=== PATIENT | male | born 1970 | race Caucasian/White ===

== ENCOUNTER 2017-07-25 04:55 | Emergency (ER) | payer SELFPAY ==
[2017-07-25 06:55] VITALS: BP 102/65
[2017-07-25 07:54] LABS: BUN/Creatinine Ratio 20; Blood Urea Nitrogen 12 mg/dL (9-20); Calcium 8.7 mg/dL (8.4-10.2); Hemolysis Index 10
[2017-07-25 07:58] LABS: Basophils # (Auto) 0.1 K/mm3 (0.0-0.1); Basophils % (Auto) 0.6 % (0.0-1.8); Eosinophils # (Auto) 0.2 K/mm3 (0.0-0.4); Eosinophils % (Auto) 1.3 % (0.0-4.3); Hematocrit 35.2 % (35.5-45.6); Hemoglobin 11.6 gm/dl (11.8-15.2); Lymphocytes # (Auto) 3.4 K/mm3 (1.2-5.4); Lymphocytes % (Auto) 23.4 % (13.4-35.0); Mean Corpuscular HGB Conc 33 % (32-34); Mean Corpuscular Volume 72 fl (84-94); Monocytes # (Auto) 0.6 K/mm3 (0.0-0.8); Platelet Count 379 K/mm3 (140-440); Red Blood Count 4.89 M/mm3 (3.65-5.03); Red Cell Distribution Width 18.7 % (13.2-15.2)
[2017-07-25 08:00] LABS: Mean Corpuscular Hemoglobin 24 pg (28-32)
== END 2017-07-25 11:16 | disposition left against medical advice (07) ==
LOC: ED 04:55
DX: R55 Syncope and collapse (principal); Z53.21 Procedure and treatment not carried out due to patient leaving prior to being seen by health care provider
CPT/HCPCS: 36415; 80048; 85025; 93005; 93010; G0480; 80320

== ENCOUNTER 2020-08-03 00:08 | Inpatient (IN) | payer OTHER ==
--- NOTE | 2020-08-03 00:16 | Emergency Department Report ---
- General Chief complaint: Weakness Stated complaint: POSS STROKE PUI?: No Time Seen by Provider: 08/03/20 00:08 Source: patient, EMS Mode of arrival: Stretcher Limitations: No Limitations - History of Present Illness Initial comments: Patient is a 50-year-old male that presents emergency room with complaints of right-sided weakness. Patient states it started approximately 4550 minutes ago. Patient states he is unable to move the right upper and lower extremity. Patient is also got a right-sided facial droop. Patient states she had a past medical history of hypertension and hyperlipidemia. Patient states her no modifying factors. Patient denies chest pain shortness of breath. Patient denies recent travel. Patient denies recent international travel. Patient denies exposure to the novel coronavirus. Patient denies sick contacts. Patient denies fever and chills. Patient denies cough. Patient denies diarrhea. Patient denies coming in contact with anybody with symptoms of the novel coronavirus. . Complaint: focal weakness -: Sudden, minutes(s) Location: RUE, R hand, RLE Severity: severe Consistency: constant - Related Data Previous Rx's Medication Instructions Recorded Last Taken Type Omeprazole [PriLOSEC] 20 mg PO BID #60 cap 08/01/14 Unknown Rx amLODIPine 5 mg PO QDAY #30 tablet 08/01/14 Unknown Rx Aspirin 325 mg PO QDAY #30 tablet 08/04/20 Unknown Rx AtorvaSTATin [Lipitor] 40 mg PO QHS #30 tablet 08/04/20 Unknown Rx Allergies Allergy/AdvReac Type Severity Reaction Status Date / Time Penicillins Allergy Anaphylaxis Verified 08/03/20 02:48 ED Review of Systems ROS: Stated complaint: POSS STROKE Other details as noted in HPI Constitutional: weakness. denies: chills, fever Eyes: denies: eye pain, eye discharge, vision change ENT: denies: ear pain, throat pain Respiratory: denies: cough, shortness of breath, wheezing Cardiovascular: denies: chest pain, palpitations Endocrine: no symptoms reported Gastrointestinal: denies: abdominal pain, nausea, diarrhea Genitourinary: denies: urgency, dysuria Musculoskeletal: denies: back pain, joint swelling, arthralgia Skin: denies: rash, lesions Neurological: as per HPI, weakness. denies: headache, paresthesias Psychiatric: denies: anxiety, depression Hematological/Lymphatic: denies: easy bleeding, easy bruising ED Past Medical Hx - Past Medical History Previous Medical History?: Yes Hx Hypertension: Yes Hx Heart Attack/AMI: No Hx Congestive Heart Failure: No Hx Diabetes: No Hx GERD: Yes Hx Liver Disease: No Hx Renal Disease: No Hx Sickle Cell Disease: No Hx Seizures: No Hx Asthma: No Hx COPD: No Hx HIV: No Additional medical history: pancreatitis - Surgical History Past Surgical History?: Yes Hx Pacemaker: No Hx Internal Defibrillator: No Additional Surgical History: perf gastric ulcer april 2013 - Family History Family history: no significant - Social History Smoking Status: Current Every Day Smoker Substance Use Type: Alcohol - Medications Home Medications: Home Medications Medication Instructions Recorded Confirmed Last Taken Type Omeprazole [PriLOSEC] 20 mg PO BID #60 cap 08/01/14 08/03/20 Unknown Rx amLODIPine 5 mg PO QDAY #30 tablet 08/01/14 08/03/20 Unknown Rx Aspirin 325 mg PO QDAY #30 tablet 08/04/20 Unknown Rx AtorvaSTATin [Lipitor] 40 mg PO QHS #30 tablet 08/04/20 Unknown Rx ED Physical Exam - General General appearance: alert, in no apparent distress - Head Head exam: Present: atraumatic, normocephalic - Eye Eye exam: Present: normal appearance, PERRL Pupils: Present: normal accommodation - ENT ENT exam: Present: mucous membranes moist - Neck Neck exam: Present: normal inspection - Respiratory Respiratory exam: Present: normal lung sounds bilaterally. Absent: respiratory distress, wheezes, rhonchi - Cardiovascular Cardiovascular Exam: Present: regular rate, normal rhythm. Absent: systolic murmur, diastolic murmur, rubs, gallop - GI/Abdominal GI/Abdominal exam: Present: soft, normal bowel sounds - Rectal Rectal exam: Present: deferred - Extremities Exam Extremities exam: Present: normal inspection - Back Exam Back exam: Present: normal inspection - Neurological Exam Neurological exam: Present: alert, oriented X3 - Psychiatric Psychiatric exam: Present: normal affect, normal mood - Skin Skin exam: Present: warm, dry, intact, normal color. Absent: rash - Assessment Assessment Interval: Baseline - Level of Consciousness 1a. Level of Consciousness: alert/keenly responsive - LOC Questions 1b. LOC Questions: answers both correctly - LOC Command 1c. LOC Commands: performs tasks correctly - Best Gaze 2. Best Gaze: normal - Visual 3. Visual: no visual loss - Facial Palsy 4. Facial Palsy: partial paralysis - Motor Arm 5a. Motor Arm Left: no drift 5b. Motor Arm Right: no movement - Motor Leg 6a. Motor Leg Left: no drift 6b. Motor Leg Right: no movement - Limb Ataxia 7. Limb Ataxia: absent - Sensory 8. Sensory: normal - Best Language 9. Best Language: no aphasia - Dysarthria 10. Dysarthria: normal - Extinction and Inattention 11. Extinction/Inattention: no abnormality - Scoring Total Score: 10 Stroke Severity: Moderate Stroke ED Course Vital Signs 08/03/20 08/03/20 08/03/20 00:10 02:21 02:22 Temperature 98.1 F Pulse Rate 87 75 74 Pulse Rate [ None] Pulse Rate [ Right Arm] Respiratory 22 Rate Respiratory Rate [Right Arm ] Blood Pressure 136/91 114/75 114/75 Blood Pressure 136/91 [Left] Blood Pressure [Right Arm] O2 Sat by Pulse 96 Oximetry O2 Sat by Pulse Oximetry [ Right Arm] 08/03/20 08/03/20 08/03/20 02:37 02:52 03:07 Temperature Pulse Rate 72 72 69 Pulse Rate [ None] Pulse Rate [ Right Arm] Respiratory 20 21 19 Rate Respiratory Rate [Right Arm ] Blood Pressure Blood Pressure 105/69 112/72 100/66 [Left] Blood Pressure [Right Arm] O2 Sat by Pulse 97 95 96 Oximetry O2 Sat by Pulse Oximetry [ Right Arm] 08/03/20 08/03/20 08/03/20 03:22 03:37 04:00 Temperature 97.8 F Pulse Rate 74 74 71 Pulse Rate [ 72 None] Pulse Rate [ 72 Right Arm] Respiratory 15 20 20 Rate Respiratory 20 Rate [Right Arm ] Blood Pressure 106/72 Blood Pressure 102/64 99/63 [Left] Blood Pressure 106/72 [Right Arm] O2 Sat by Pulse 95 98 100 Oximetry O2 Sat by Pulse 100 Oximetry [ Right Arm] 08/03/20 08/03/20 04:08 04:10 Temperature Pulse Rate 71 70 Pulse Rate [ None] Pulse Rate [ Right Arm] Respiratory 19 17 Rate Respiratory Rate [Right Arm ] Blood Pressure 106/72 Blood Pressure [Left] Blood Pressure [Right Arm] O2 Sat by Pulse 97 97 Oximetry O2 Sat by Pulse Oximetry [ Right Arm] - Reevaluation(s) Reevaluation #1: Evaluation done. Code stroke initiated. Patient sent to CT scan with EMS. 08/03/20 00:06 Reevaluation #2: Patient states he does not want the medication. Patient states there is too much risk. Patient is of sound mind and body. Patient is answering all questions properly. Patient voiced understanding of his condition. I explained the risks to the patient. Patient voiced understanding of the risk. Patient refused to have TPA. 08/03/20 00:45 Reevaluation #3: The patient has decided to go forward with TPA. Patient agrees to have TPA. Patient voiced understanding of risk and benefits. 08/03/20 01:44 Reevaluation #4: I discussed all results with patient. I discussed plan of care with patient. Patient agrees with plan of care and admission. Patient to be admitted to the hospitalist service. 08/03/20 01:58 - Consultations Consultation #1: I discussed the case with neurology and with the patient. Neurology recommends TPA but the patient is refusing. 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 TPA order set placed. 08/03/20 01:50 Consultation #2: Hospitalist consulted for admission. Hospitalist to admit patient. 08/03/20 01:58 ED Medical Decision Making - Lab Data Result diagrams: 08/04/20 04:47 08/04/20 04:47 - EKG Data -: EKG Interpreted by Or EKG shows normal: sinus rhythm, axis, intervals, QRS complexes, ST-T waves Rate: normal - Radiology Data Radiology results: report reviewed, image reviewed CT head/brain wo con INDICATION / CLINICAL INFORMATION: CODE STROKE PROTOCOL!! Stroke-Like symptoms. Hemiplegia TECHNIQUE: Axial CT imaging of brain was obtained without contrast. Coronal and sagittal reformatted imaging obtained and reviewed. All CT scans at this location are performed using CT dose reduction for ALARA by means of automated exposure control. COMPARISON: None available. FINDINGS: No intracranial hemorrhage, mass, or midline shift noted. No extra-axial fluid collection. No visible evidence of ischemia at this time. Ventricular system and basilar cisterns are unremarkable. Gallegos-white interface is maintained. Visualized paranasal sinuses and mastoid air cells are well aerated. No calvarial abnormality. IMPRESSION: 1. No acute intracranial abnormality at this time. These note that a negative CT head does not exclude the possibility of acute CVA and clinical correlation is recommended. CTA neck without and with intravenous contrast material CLINICAL HISTORY: CODE STROKE PROTOCOL!! Stroke-Like symptoms TECHNIQUE: Following acquisition of a timing bolus 0.625 mm thick contiguous axial scans were obtained from aortic arch to the skull base during rapid bolus intravenous contrast infusion. In addition to evaluation of axial source images multiplanar reconstructions were produced and reviewed for this report. 3 plane MIP reconstructions were produced and reviewed. Contrast dose report: Omnipaque 350: 100 ml, administered intravenously All CT examinations performed at this facility utilize modulated dose reduction, iterative reconstruction or weight-based dosing, as appropriate, to obtain a radiation dose which is as low as can reasonably be achieved. FINDINGS: Thoracic aorta:No abnormalities are identified along the course of the thoracic aorta..The origins of the great vessels have an unremarkable appearance. Brachiocephalic artery, left common carotid artery origin and left subclavian artery all have an unremarkable appearance. Right carotid artery:No abnormalities are seen along the course of the RCCA, at the right carotid bifurcation or along the cervical portions of the SYL. Left carotid artery: No abnormalities are noted along the course of the left common carotid artery, at the left carotid bifurcation or along the course of the cervical segments of the LICA. Posterior circulation:The vertebral arteries have an unremarkable appearance. Both vertebral arteries contribute to the basilar artery origin. The basilar artery has an unremarkable appearance. The degree of stenosis, if any, is determined utilizing NASCET like criteria. In this case there is no indication of hemodynamically significant stenosis at the carotid bifurcations or elsewhere. Evaluation of the nonvascular soft tissue structures reveal no abnormality. There is no indication of cervical lymphadenopathy. No abnormalities are seen along the course of the airway. Visualized portions of the parotid glands and the submandibular salivary glands have a normal appearance. Thyroid gland has a normal appearance. Evaluation of the lung apices reveals no evidence of lung nodule or infiltrate. Evaluation of the cervical spine is remarkable for degenerative changes with loss of disc height and anterior and posterior osteophyte formation at the C5-6 and C6-7 levels. There is no indication of central canal stenosis. IMPRESSION: 1. No indication of hemodynamically significant stenosis or large vessel occlusion. CTA head with intravenous contrast CLINICAL HISTORY: CODE STROKE PROTOCOL!! Stroke-Like symptoms TECHNIQUE: 0.625 mm thick contiguous axial scans were obtained from the skull base to the skull vertex during rapid bolus administration of intravenous contrast material. Multiplanar reconstructions were produced in the coronal and sagittal planes. In addition 3 plane MIP instructions were produced and reviewed for this report. The axial source images and reconstructed images were reviewed for this report. CONTRAST DOSE REPORT: Blank: Contrast dose ml administered intravenously. All CT scans at this location are performed using CT dose reduction for ZumobiRA by means of automated exposure control. FINDINGS: Internal carotid arteries:Calcified atherosclerotic plaque along the course of the cavernous segment of both internal carotid arteries without associated stenosis. Luli, cavernous, opthalmic, clinoid and supraclinoid segments of the ICAs have an otherwise unremarkable appearance. Middle cerebral arteries:Normal and symmetrical M1 segments of the middle cerebral arteries are demonstrated. No abnormalities are seen on evaluation of the insular or opercular branches. Anterior cerebral arteries:Bilaterally symmetrical A1 segments are demonstrated. No abnormalities are seen along the course of the A2 segments or their visualized pericallosal branches. Vertebral arteries:Bilaterally symmetrical vertebral arteries are demonstrated. Both vertebral arteries contribute to the basilar artery origin. Basilar artery:Basilar artery has an unremarkable appearance. Posterior cerebral arteries: Bilaterally symmetrical posterior cerebral arteries are identified. Dural sinuses: Dural venous sinuses are well demonstrated on this exam. There is no evidence of dural sinus thrombosis. IMPRESSION: 1. No indication of large vessel occlusion or hemodynamically significant shanika nosis. - Medical Decision Making Patient is a 50-year-old male that presents emergency room with complaints of Right-sided weakness. Patient presented 45 minutes after the onset of symptoms. Code stroke called after initial evaluation and immediately after arrival. Patient to CT scan with EMS. Neurology consult. Patient was seen early in his stay by neurology. CT scan of the head was done immediately and was negative for acute findings. Patient then had a CTA of the head and neck immediately after the CTA of the head. Patient was seen by the neurologist and recommended TPA. The patient initially refused TPA but after multiple discussions the patient then agreed. I delay in TPA being given due to the patient refusing. I updated the neurology with the patient status. I confirmed the dose of TPA with the neurologist. TPA order set was ordered. Patient had labs done which are essentially unremarkable except for abnormal chemistry, abnormal LFT and acute intoxication. Patient admitted to the hospital service for further evaluation treatment. Critical care time documented due to the multiple reassessments, prolonged time at the bedside, interpretation of diagnostics and labs. - Differential Diagnosis Stroke, weakness, right-sided weakness, slurred speech, facial droop Critical Care Time: Yes Critical care time in (mins) excluding proc time.: 45 Critical care attestation.: If time is entered above; I have spent that time in minutes in the direct care of this critically ill patient, excluding procedure time. Critical Care Time: 45 minutes ED Disposition Clinical Impression: Weakness CVA (cerebral vascular accident) Qualifiers: CVA mechanism: unspecified Qualified Code(s): I63.9 - Cerebral infarction, unspecified Alcohol intoxication Qualifiers: Complication of substance-induced condition: with unspecified complication Qualified Code(s): F10.929 - Alcohol use, unspecified with intoxication, unspecified Disposition: 09 OP ADMIT IP TO THIS HOSP Is pt being admited?: Yes Does the pt Need Aspirin: No Condition: Stable Time of Disposition: 01:58
[2020-08-03 00:54] LABS: Basophils # (Auto) 0.2 K/mm3 (0.0-0.1); Basophils % (Auto) 1.1 % (0.0-1.8); Eosinophils # (Auto) 0.3 K/mm3 (0.0-0.4); Eosinophils % (Auto) 1.7 % (0.0-4.3); Hematocrit 39.3 % (35.5-45.6); Hemoglobin 13.6 gm/dl (11.8-15.2); Lymphocytes # (Auto) 4.1 K/mm3 (1.2-5.4); Lymphocytes % (Auto) 26.9 % (13.4-35.0); Mean Corpuscular HGB Conc 35 % (32-34); Mean Corpuscular Volume 92 fl (84-94); Monocytes # (Auto) 0.6 K/mm3 (0.0-0.8); Monocytes % (Auto) 3.7 % (0.0-7.3); Platelet Count 295 K/mm3 (140-440); Red Blood Count 4.27 M/mm3 (3.65-5.03); Red Cell Distribution Width 14.2 % (13.2-15.2)
--- NOTE | 2020-08-03 01:00 | Cat Scan Report ---
CT head/brain wo con INDICATION / CLINICAL INFORMATION: CODE STROKE PROTOCOL!! Stroke-Like symptoms. Hemiplegia TECHNIQUE: Axial CT imaging of brain was obtained without contrast. Coronal and sagittal reformatted imaging obt ained and reviewed. All CT scans at this location are performed using CT dose reduction for ALARA by means of automated exposure control. COMPARISON: None available. FINDINGS: No intracranial hemorrhage, mass, or midline shift noted. No extra-axial fluid collection. No visible evidence of ischemia at this time. Ventricular system and basilar cisterns are unremarkable. Gallegos-wh ite interface is maintained. Visualized paranasal sinuses and mastoid air cells are well aerated. No calvarial abnormality. IMPRESSION: 1. No acute intracranial abnormality at this time. These note that a negative CT head does not exclud e the possibility of acute CVA and clinical correlation is recommended. 2. A Negative report was telephoned to Dr. Ansari at 2350 hours Signer Name: Marie Ahmadi MD Signed: 08/03/2020 12:55 AM Workstation Name: [id number]
[2020-08-03 01:05] LABS: INR 0.99 (0.87-1.13)
[2020-08-03 01:06] LABS: Partial Thromboplastin Time 32.8 Sec. (24.2-36.6); Thrombin Time 18.2 Sec. (15.1-19.6)
--- NOTE | 2020-08-03 01:07 | Emergency Department Report ---
HPI - General Chief Complaint: Weakness PUI?: No Time Seen by Provider: 08/03/20 00:10 - HPI HPI: [facility] Consult Note # Demographics Consult Type: Acute Stroke Level 1 (0-4.5 hrs) Patient Location: Emergency Room First Name: Parag Last Name: Manny Date of : 1970 Age: 50 Gender: Male Time of Initial Page (): 08/03/2020, 00:11 Time of Return Call ( Time): 08/03/2020, 00:12 # HPI History: 50 yo man hx of HTN, HLD , presented 45 min ago, weakness of the right arm/leg, facial droop after being out with, drank 2 beers tonight. Hx of prior abdominal surgeries, pancreatitis # Scores Time of exam and NIHSS (): 08/03/2020, 00:34 Level of Consciousness 1a: [0] = Alert; keenly responsive LOC Questions 1b: [0] = Answers both questions correctly LOC Commands 1c: [0] = Performs both tasks correctly Best Gaze 2: [0] = Normal Visual 3: [0] = No visual loss Facial Palsy 4: [1] = Minor paralysis Motor Arm Left 5a: [2] = Some effort against gravity Motor Arm Right 5b: [0] = No drift Motor Leg Left 6a: [3] = No effort against gravity Motor Leg Right 6b: [0] = No drift Limb Ataxia 7: [0] = Absent Sensory 8: [1] = Ihgn-pr-oedvjngt sensory loss Best Language 9: [0] = No aphasia Dysarthria 10: [0] = Normal Extinction and Inattention 11: [0] = No abnormality NIHSS Total: 7 # Data Time Head CT personally read by me (): 08/03/2020, 00:[address]: no bleed CTA Head: no large vessel occlusion # Assessment Impression: Right sided weakness, suspect acute ischemic stroke Repeated discussions with ER doctor and patient. The patient does not wish to p ursue thrombolytic therapy, citing unfavorable prior interactions with other doctors. After attempts to convince patient of his symptoms and my concern for stroke, will not pursue thrombolytic therapy. ER doctor will reach out to the patient's family to confirm his decisions. He appears to be able to recognize and acknowledge his weakness in his right side, and appears to have no neglect to his symptoms. CTA does not show large vessel occlusion. # Plan Thrombolytic/Intervention: NOT IV Thrombolytic or IA Intervention Thrombolytic Exclusion (< 3 hour window): family/ patient refusal Thrombolytic Exclusion: > 4.5 hours Target Blood Pressure: SBP < 220 DBP < 105 Labs: CBC comprehensive metabolic panel lipid panel TSH ua Thrombolytic Administration Recommendations: I reviewed the risks/benefits/alternatives of IV thrombolytic therapy with the patient. They understand there is potential of life threatening hemorrhage from IV thrombolysis. I stated that I believe benefits outweighs risk. They wish to proceed with IV thrombolytic therapy. Other: consult on-site neurology service for full work-up and evaluation recommendations If patient has any neurological deterioration please call me back immediately I have discussed my recommendations with the referring provider Additional Recommendations: Admit for stroke work up mri brain call me back for any change in plan of care aspirin 325mg Disposition: admit # Logistics Telemedicine: Interactive 2 way audio and visual telecommunication technology was utilized during this visit ED Past Medical Hx - Past Medical History Previous Medical History?: Yes Hx Hypertension: Yes Hx Heart Attack/AMI: No Hx Congestive Heart Failure: No Hx Diabetes: No Hx GERD: Yes Hx Liver Disease: No Hx Renal Disease: No Hx Sickle Cell Disease: No Hx Seizures: No Hx Asthma: No Hx COPD: No Hx HIV: No Additional medical history: pancreatitis - Surgical History Past Surgical History?: Yes Hx Pacemaker: No Hx Internal Defibrillator: No Additional Surgical History: perf gastric ulcer april 2013 - Social History Smoking Status: Current Every Day Smoker Substance Use Type: Alcohol - Medications Home Medications: Home Medications Medication Instructions Recorded Confirmed Last Taken Type Omeprazole [PriLOSEC] 20 mg PO BID #60 cap 08/01/14 Unknown Rx amLODIPine 5 mg PO QDAY #30 tablet 08/01/14 Unknown Rx ED Review of Systems ROS: Stated complaint: POSS STROKE Other details as noted in HPI Constitutional: weakness. denies: chills, fever Eyes: denies: eye pain, eye discharge, vision change ENT: denies: ear pain, throat pain Respiratory: denies: cough, shortness of breath, wheezing Cardiovascular: denies: chest pain, palpitations Endocrine: no symptoms reported Gastrointestinal: denies: abdominal pain, nausea, diarrhea Genitourinary: denies: urgency, dysuria Musculoskeletal: denies: back pain, joint swelling, arthralgia Skin: denies: rash, lesions Neurological: as per HPI, weakness. denies: headache, paresthesias Psychiatric: denies: anxiety, depression Hematological/Lymphatic: denies: easy bleeding, easy bruising Physical Exam - Physical Exam Vital Signs: Vital Signs 08/03/20 00:10 Temperature 98.1 F Pulse Rate 87 Respiratory 22 Rate Blood Pressure 136/91 Blood Pressure 136/91 [Left] O2 Sat by Pulse 96 Oximetry ED Course Vital Signs 08/03/20 00:10 Temperature 98.1 F Pulse Rate 87 Respiratory 22 Rate Blood Pressure 136/91 Blood Pressure 136/91 [Left] O2 Sat by Pulse 96 Oximetry ED Medical Decision Making - Lab Data Result diagrams: 08/03/20 00:44 Critical care attestation.: If time is entered above; I have spent that time in minutes in the direct care of this critically ill patient, excluding procedure time. ED Disposition Clinical Impression: Weakness Disposition: DC-[id number] OP ADMIT IP TO THIS HOSP Is pt being admited?: Yes Does the pt Need Aspirin: Yes Condition: Stable
--- NOTE | 2020-08-03 01:10 | Cat Scan Report ---
CTA neck without and with intravenous contrast material CLINICAL HISTORY: CODE STROKE PROTOCOL!! Stroke-Like symptoms TECHNIQUE: Following acquisition of a timing bolus 0.625 mm thick contiguous axial scans were obtained from aort ic arch to the skull base during rapid bolus intravenous contrast infusion. In addition to evaluation of axial source images multiplanar reconstructions were produced and reviewed for this report. 3 zay ne MIP reconstructions were produced and reviewed. Contrast dose report: Omnipaque 350: 100 ml, administered intravenously All CT examinations performed at this facility utilize modulated dose reduction, iterative reconstruc tion or weight-based dosing, as appropriate, to obtain a radiation dose which is as low as can reason ably be achieved. FINDINGS: Thoracic aorta:No abnormalities are identified along the course of the thoracic aorta..The origins of the great vessels have an unremarkable appearance. Brachiocephalic artery, left common carotid arter y origin and left subclavian artery all have an unremarkable appearance. Right carotid artery:No abnormalities are seen along the course of the RCCA, at the right carotid bif urcation or along the cervical portions of the SYL. Left carotid artery: No abnormalities are noted along the course of the left common carotid artery, a t the left carotid bifurcation or along the course of the cervical segments of the LICA. Posterior circulation:The vertebral arteries have an unremarkable appearance. Both vertebral arteries contribute to the basilar artery origin. The basilar artery has an unremarkable appearance. The degree of stenosis, if any, is determined utilizing NASCET like criteria. In this case there is no indication of hemodynamically significant stenosis at the carotid bifurcations or elsewhere. Evaluation of the nonvascular soft tissue structures reveal no abnormality. There is no indication of cervical lymphadenopathy. No abnormalities are seen along the course of the airway. Visualized porti ons of the parotid glands and the submandibular salivary glands have a normal appearance. Thyroid gla nd has a normal appearance. Evaluation of the lung apices reveals no evidence of lung nodule or infil trate. Evaluation of the cervical spine is remarkable for degenerative changes with loss of disc height and anterior and posterior osteophyte formation at the C5-6 and C6-7 levels. There is no indication of ce ntral canal stenosis. IMPRESSION: 1. No indication of hemodynamically significant stenosis or large vessel occlusion. Signer Name: Janusz Randall MD Signed: 08/03/2020 1:06 AM Workstation Name: [id number]
--- NOTE | 2020-08-03 01:18 | Cat Scan Report ---
CTA head with intravenous contrast CLINICAL HISTORY: CODE STROKE PROTOCOL!! Stroke-Like symptoms TECHNIQUE: 0.625 mm thick contiguous axial scans were obtained from the skull base to the skull vertex during r apid bolus administration of intravenous contrast material. Multiplanar reconstructions were produced in the coronal and sagittal planes. In addition 3 plane MIP instructions were produced and reviewed for this report. The axial source images and reconstructed images were reviewed for this report. CONTRAST DOSE REPORT: Blank: Contrast dose ml administered intravenously. All CT scans at this location are performed using CT dose reduction for ALARA by means of automated e xposure control. FINDINGS: Internal carotid arteries:Calcified atherosclerotic plaque along the course of the cavernous segment of both internal carotid arteries without associated stenosis. Luli, cavernous, opthalmic, clinoid and supraclinoid segments of the ICAs have an otherwise unremarkable appearance. Middle cerebral arteries:Normal and symmetrical M1 segments of the middle cerebral arteries are demon strated. No abnormalities are seen on evaluation of the insular or opercular branches. Anterior cerebral arteries:Bilaterally symmetrical A1 segments are demonstrated. No abnormalities are seen along the course of the A2 segments or their visualized pericallosal branches. Vertebral arteries:Bilaterally symmetrical vertebral arteries are demonstrated. Both vertebral arteri es contribute to the basilar artery origin. Basilar artery:Basilar artery has an unremarkable appearance. Posterior cerebral arteries: Bilaterally symmetrical posterior cerebral arteries are identified. Dural sinuses: Dural venous sinuses are well demonstrated on this exam. There is no evidence of dural sinus thrombosis. IMPRESSION: 1. No indication of large vessel occlusion or hemodynamically significant stenosis. Signer Name: Janusz Randall MD Signed: 08/03/2020 1:13 AM Workstation Name: [id number]
[2020-08-03 01:27] LABS: Bilirubin,Urine NEG (Negative); Blood,Urine NEG (Negative); Color,Urine Straw (Yellow); Protein,Urine <15 mg/dL mg/dL (Negative); Urobilinogen,Urine < 2.0 mg/dL (<2.0); WBC,Urine < 1.0 /HPF (0.0-6.0)
[2020-08-03 01:29] LABS: Creatine Kinase MB 3.1 ng/mL (0.0-4.0)
[2020-08-03 01:30] LABS: Alanine Aminotransferase 46 units/L (7-56); Blood Urea Nitrogen 6 mg/dL (9-20); Calcium 8.4 mg/dL (8.4-10.2); Hemolysis Index 8
[2020-08-03 01:36] LABS: BUN/Creatinine Ratio 9
[2020-08-03 01:37] LABS: Amphetamine Screen,Urine Negative; Benzodiazepines Screen,Urine Negative; Cannabinoid Screen,Urine Negative; Cocaine Screen,Urine Negative; Methadone Screen,Urine Negative; Opiate Screen,Urine Negative
[2020-08-03] MEDS ORDERED: ALTEPLASE 100 MG INJ KIT IV ONE ×2 (01:51)
[2020-08-03] MEDS ORDERED: SODIUM CHLORIDE 0.9% 50 ML IVPB IV ONE (01:51)
--- NOTE | 2020-08-03 02:27 | XRay Report ---
CHEST 1 VIEW INDICATION / CLINICAL INFORMATION: weakness. COMPARISON: None available FINDINGS: SUPPORT DEVICES: None. HEART / MEDIASTINUM: No significant abnormality. LUNGS / PLEURA: There is mild interstitial prominence bilaterally. The lungs are otherwise well aerat ed and clear. No pleural effusion. No pneumothorax. ADDITIONAL FINDINGS: No significant additional findings. IMPRESSION: 1. Mild interstitial prominence, nonspecific. I suspect the interstitial prominence is due to pulmona ry vascular congestion. 2. No other significant finding. Signer Name: Marie Ahmadi MD Signed: 08/03/2020 2:23 AM Workstation Name: [id number]
[2020-08-03] MEDS ORDERED: MAGNESIUM HYDROXIDE (MOM) ORAL LIQD UDC PO PRN ×3 (03:00)
[2020-08-03] MEDS ORDERED: ONDANSETRON 4 MG/2 ML INJ IV PRN ×2 (03:00)
[2020-08-03] MEDS ORDERED: METOCLOPRAMIDE 10 MG TAB PO PRN (03:00)
[2020-08-03] MEDS ORDERED: PROMETHAZINE 25 MG RECT SUPP PR PRN (03:00)
[2020-08-03] MEDS ORDERED: MORPHINE 2 MG/1 ML INJ IV PRN (03:00)
[2020-08-03] MEDS ORDERED: ACETAMINOPHEN 325 MG TAB PO PRN ×2 (03:00)
--- NOTE | 2020-08-03 03:14 | History and Physical Report ---
History of Present Illness Date of examination: 08/03/20 Date of admission: 08/03/20 01:52 Chief complaint: Right Sided weakness. History of present illness: 50-year-old male with significant past medical history of hypertension and chronic pancreatitis presenting to the emergency room today complaining of right-sided weakness. Weakness is said to have started about 45 to 50 minutes prior to reporting to the emergency room. He has had some facial droop especia lly on the right side. He denies any chest pain or shortness of breath, no headache or dizziness and denies any blurry vision. Patient denies any nausea vomiting and no abdominal pain. He denies any sick contacts and no recent travel. Denies any contact with anyone with COVID-19. Upon arrival in the emergency room patient was found to have a right-sided weakness and initially declined a TPA. Was also found to be intoxicated. Upon further counseling he however agreed to having TPA administered. During the course of his stay in the emergency room he had some improvement in his symptoms. Work-up in the emergency room including CT scan of the head and CTA were unremarkable. He was evaluated by the tele-neurologist who recommended a CVA work-up. Past History Past Medical History: GERD, hypertension, other (Chronic Pancreatitis) Past Surgical History: Other (Perforated gastric ulcer in 2013) Social history: smoking (Current daily smoker), alcohol abuse Family history: hypertension (Father) Medications and Allergies Allergies Allergy/AdvReac Type Severity Reaction Status Date / Time Penicillins Allergy Anaphylaxis Verified 08/03/20 02:48 Home Medications Medication Instructions Recorded Confirmed Last Taken Type Omeprazole [PriLOSEC] 20 mg PO BID #60 cap 08/01/14 08/03/20 Unknown Rx amLODIPine 5 mg PO QDAY #30 tablet 08/01/14 08/03/20 Unknown Rx Review of Systems Constitutional: no fever, no chills Ears, nose, mouth and throat: no nasal congestion, no sore throat Cardiovascular: no chest pain, no palpitations Respiratory: no cough, no shortness of breath Gastrointestinal: no abdominal pain, no nausea, no vomiting, no diarrhea Genitourinary Male: no dysuria, no hematuria, no flank pain, no nocturia Musculoskeletal: no neck pain, no low back pain Integumentary: no rash, no pruritis Neurological: no headaches, no confusion Psychiatric: no anxiety, no depression Endocrine: no polyphagia, no polydipsia, no polyuria, no nocturia Exam - Constitutional Vitals: Temp Pulse Resp BP Pulse Ox 98.1 F 69 19 100/66 96 08/03/20 00:10 08/03/20 03:07 08/03/20 03:07 08/03/20 03:07 08/03/20 03:07 General appearance: Present: no acute distress, well-nourished - EENT Eyes: Present: PERRL, EOM intact. Absent: scleral icterus ENT: hearing intact, clear oral mucosa, dentition normal - Neck Neck: Present: supple, normal ROM - Respiratory Respiratory effort: normal Respiratory: bilateral: CTA - Cardiovascular Rhythm: regular Heart Sounds: Present: S1 & S2. Absent: gallop, systolic murmur, diastolic murmur, rub, click - Extremities Extremities: no ischemia, pulses intact, pulses symmetrical, No edema, normal temperature, normal color, Full ROM Peripheral Pulses: within normal limits - Abdominal General gastrointestinal: Present: soft, non-tender, non-distended, normal bowel sounds. Absent: mass - Integumentary Integumentary: Present: clear, warm, dry. Absent: rash - Musculoskeletal Musculoskeletal: right sided weakness - Psychiatric Psychiatric: appropriate mood/affect, intact judgment & insight, memory intact, cooperative - Neurologic Neurologic: CNII-XII intact, no focal deficits, moves all extremities HEART Score - HEART Score Troponin: Troponin T < 0.010 ng/mL (0.00-0.029) 08/03/20 00:44 Results - Labs CBC & Chem 7: 08/03/20 00:44 08/03/20 00:44 Labs: Abnormal lab results 08/03/20 08/03/20 08/03/20 Range/Units 00:44 00:44 00:44 WBC 15.2 H (4.5-11.0) K/mm3 MCHC 35 H (32-34) % Baso # (Auto) 0.2 H (0.0-0.1) K/mm3 Seg Neutrophils # 10.1 H (1.8-7.7) K/mm3 Carbon Dioxide 18 L (22-30) mmol/L BUN 6 L (9-20) mg/dL Creatinine 0.7 L (0.8-1.3) mg/dL AST 47 H (5-40) units/L Alkaline Phosphatase 145 H (35-129) units/L Total Creatine Kinase 228 H (55-170) units/L Total Protein 6.2 L (6.3-8.2) g/dL Plasma/Serum Alcohol 0.13 H (0-0.07) % Assessment and Plan - Patient Problems (1) CVA (cerebral vascular accident) Current Visit: Yes Status: Acute Qualifiers: CVA mechanism: unspecified Qualified Code(s): I63.9 - Cerebral infarction, unspecified Plan to address problem: Patient presented with right-sided weakness. He has received TPA. He will be monitored in the intensive care unit. We will withhold aspirin at this time. Consult placed to neurology for evaluation. We will also request physical therapy evaluation. We will schedule patient for MRI of the brain and echocardiogram. (2) Alcohol intoxication Current Visit: Yes Status: Acute Qualifiers: Complication of substance-induced condition: with unspecified complication Qualified Code(s): F10.929 - Alcohol use, unspecified with intoxication, unspecified Plan to address problem: Patient counseled on quitting alcohol abuse. We will place on [facility] protocol. (3) HTN (hypertension) Current Visit: No Status: Chronic Plan to address problem: We will resume routine home medications and monitor vital signs closely. (4) DVT prophylaxis Current Visit: Yes Status: Acute Plan to address problem: Patient placed on sequential compression device. (5) Full code status Current Visit: Yes Status: Acute Plan to address problem: Patient is full code.
[2020-08-03] MEDS ORDERED: ASPIRIN 325 MG TAB PO SCH (10:00)
[2020-08-03] MEDS: amLODIPine 5 MG TAB PO SCH (10:00)
[2020-08-03] MEDS: PANTOPRAZOLE 20 MG TAB PO SCH ×2 (10:01→21:47)
--- NOTE | 2020-08-03 13:07 | Consultation ---
History of Present Illness Consult date: 08/03/20 Requesting physician: MELLISSA DAVID Reason for consult: other (Acute CVA s/p tPA) History of present illness: PULMONARY/CCM CONSULT NOTE (Full dictation # [id number]) Please see dictated notes for full details Past History Past Medical History: GERD, hypertension, other (Chronic Pancreatitis) Past Surgical History: Other (Perforated gastric ulcer in 2014) Social history: smoking (Current daily smoker), alcohol abuse Family history: hypertension (Father) Medications and Allergies Allergies Allergy/AdvReac Type Severity Reaction Status Date / Time Penicillins Allergy Anaphylaxis Verified 08/03/20 02:48 Home Medications Medication Instructions Recorded Confirmed Last Taken Type Omeprazole [PriLOSEC] 20 mg PO BID #60 cap 08/01/14 08/03/20 Unknown Rx amLODIPine 5 mg PO QDAY #30 tablet 08/01/14 08/03/20 Unknown Rx Aspirin 325 mg PO QDAY #30 tablet 08/04/20 Unknown Rx AtorvaSTATin [Lipitor] 40 mg PO QHS #30 tablet 08/04/20 Unknown Rx Active Meds: Active Medications Acetaminophen (Acetaminophen 325 Mg Tab) 650 mg PO Q4H PRN PRN Reason: Pain MILD(1-3)/Fever >100.5/BAUER Amlodipine Besylate (Amlodipine 5 Mg Tab) 5 mg PO QDAY [facility] Last Admin: 08/03/20 10:00 Dose: 5 mg Documented by: Atorvastatin Calcium (Atorvastatin 40 Mg Tab) 40 mg PO QHS DANIELLE Bisacodyl (Bisacodyl 10 Mg Rect Supp) 10 mg [place] QDAY PRN PRN Reason: Constipation Magnesium Hydroxide (Magnesium Hydroxide (Mom) Oral Liqd Udc) 30 ml PO Q4H PRN PRN Reason: Constipation Metoclopramide HCl (Metoclopramide 10 Mg Tab) 10 mg PO Q6H PRN PRN Reason: Nausea And Vomiting Morphine Sulfate (Morphine 2 Mg/1 Ml Inj) 2 mg IV Q4H PRN PRN Reason: Pain, Moderate (4-6) Ondansetron HCl (Ondansetron 4 Mg/2 Ml Inj) 4 mg IV Q8H PRN PRN Reason: Nausea And Vomiting Pantoprazole Sodium (Pantoprazole 20 Mg Tab) 20 mg PO BID [facility] Last Admin: 08/03/20 10:01 Dose: 20 mg Documented by: Promethazine HCl (Promethazine 25 Mg Rect Supp) 25 mg [place] Q6H PRN PRN Reason: Nausea And Vomiting Sodium Chloride (Sodium Chloride 0.9% 10 Ml Flush Syringe) 10 ml IV PRN PRN PRN Reason: LINE FLUSH Sodium Chloride (Sodium Chloride 0.9% 10 Ml Flush Syringe) 10 ml IV BID DANIELLE Last Admin: 08/03/20 10:01 Dose: 10 ml Documented by: Physical Examination Vital signs: Vital Signs Temp Pulse Resp BP Pulse Ox 98.1 F 87 22 136/91 96 08/03/20 00:10 08/03/20 00:10 08/03/20 00:10 08/03/20 00:10 08/03/20 00:10 Results - Laboratory Findings CBC and BMP: 08/04/20 04:47 08/04/20 04:47 PT/INR, D-dimer PT 13.7 Sec. (12.2-14.9) 08/03/20 00:44 INR 0.99 (0.87-1.13) 08/03/20 00:44 Abnormal lab findings: Abnormal Labs 08/03/20 08/03/20 08/03/20 00:44 00:44 00:44 WBC 15.2 H MCHC 35 H Baso # (Auto) 0.2 H Seg Neutrophils # 10.1 H Carbon Dioxide 18 L BUN 6 L Creatinine 0.7 L AST 47 H Alkaline Phosphatase 145 H Total Creatine Kinase 228 H Total Protein 6.2 L Plasma/Serum Alcohol 0.13 H
--- NOTE | 2020-08-03 13:32 | Event Note ---
Date: 08/03/20 Patient seen and examined doing well moving all extremities. With we will obtain pulmonary consultation as patient is in the ICU. Continue current management per TPA protocol.
--- NOTE | 2020-08-03 16:50 | Vascular Lab Report ---
DUPLEX DOPPLER ULTRASOUND CAROTID, BILATERAL INDICATION / CLINICAL INFORMATION: Stroke. COMPARISON: CTA neck 08/03/2020. FINDINGS: RIGHT CAROTID: Calcified and noncalcified plaque is present within the bulb extending into proximal I CA. - PLAQUE ESTIMATE (%): >50% - CCA velocity: 77 cm/sec. - ICA peak systolic velocity: 146 cm/sec. - ICA/CCA PSV Ratio: 1.9 Right Vertebral Artery: Antegrade flow. LEFT CAROTID: A small amount of noncalcified plaque is present within the bulb extending into proxima l ICA. - PLAQUE ESTIMATE (%): < 50% - CCA velocity: 86 cm/sec. - ICA peak systolic velocity: 110 cm/sec. - ICA/CCA PSV Ratio: 1.3 Left Vertebral Artery: Antegrade flow. IMPRESSION: 1. Right Internal Carotid Artery: 50-69% diameter stenosis. 2. Left Internal Carotid Artery: Less than 50% diameter stenosis. Velocity criteria are extrapolated from diameter data as defined by the Society of Radiologists in Ul trasound Consensus Conference, Radiology 2003; 229;340-346. NO STENOSIS (NORMAL) - Plaque = none; ICA PSV < 125 cm/sec; ICA/CCA PSV Ratio < 2.0 <50% STENOSIS - Plaque < 50%; ICA PSV < 125 cm/sec; ICA/CCA PSV Ratio < 2.0 50-69% STENOSIS - Plaque > 50%; ICA PSV = 125-230 cm/sec; ICA/CCA PSV Ratio = 2.0-4.0 >70% BUT <100% STENOSIS - Plaque > 50%; ICA PSV > 230 cm/sec; ICA/CCA PSV Ratio > 4.0 NEAR OCCLUSION - Plaque = visible lumen; ICA PSV = high/low/none; ICA/CCA PSV Ratio = variable TOTAL OCCLUSION - Plaque = no lumen; ICA PSV = none; ICA/CCA PSV Ratio = N/A Scribed by: Karen Kingsley RDMS, RVT Scribed: 08/03/2020 3:38 PM Signer Name: Rodrigue Clements MD Signed: 08/03/2020 4:46 PM Workstation Name: [id number]
--- NOTE | 2020-08-03 17:55 | Magnetic Resonance Report ---
NONENHANCED MR SCAN OF THE BRAIN: INDICATION / CLINICAL INFORMATION: stroke. TECHNIQUE: Multiplanar, multisequence MR images of the brain obtained. COMPARISON: CT scan of the head 12:08 AM 08/03/2020 FINDINGS: BRAIN / INTRACRANIAL CONTENTS: No acute ischemia, acute hemorrhage, mass effect, midline shift, or hy drocephalus. No chronic infarct or atrophy. No significant white matter abnormality. CRANIOCERVICAL JUNCTION: No significant abnormality. VASCULAR FLOW-VOIDS: No significant abnormality. ORBITS: No significant abnormality of visualized orbits. SINUSES / MASTOIDS: No significant abnormality of visualized sinuses and mastoid air cells. ADDITIONAL FINDINGS: None. IMPRESSION: 1. Normal MR scan of the brain; no acute/subacute ischemia; no hemorrhagic lesion Signer Name: Jayson Haque MD Signed: 08/03/2020 5:51 PM Workstation Name: [id number]
[2020-08-03] MEDS ORDERED: ENOXAPARIN 40 MG/0.4 ML INJ SUB-Q SCH (22:00)
[2020-08-04 05:33] LABS: Basophils # (Auto) 0.1 K/mm3 (0.0-0.1); Basophils % (Auto) 1.1 % (0.0-1.8); Eosinophils # (Auto) 0.4 K/mm3 (0.0-0.4); Eosinophils % (Auto) 4.3 % (0.0-4.3); Hematocrit 37.8 % (35.5-45.6); Hemoglobin 12.9 gm/dl (11.8-15.2); Lymphocytes # (Auto) 3.2 K/mm3 (1.2-5.4); Lymphocytes % (Auto) 35.9 % (13.4-35.0); Mean Corpuscular HGB Conc 34 % (32-34); Mean Corpuscular Volume 94 fl (84-94); Monocytes # (Auto) 0.6 K/mm3 (0.0-0.8); Monocytes % (Auto) 6.3 % (0.0-7.3); Platelet Count 235 K/mm3 (140-440); Red Blood Count 4.04 M/mm3 (3.65-5.03); Red Cell Distribution Width 14.1 % (13.2-15.2)
[2020-08-04 05:40] LABS: INR 1.01 (0.87-1.13)
[2020-08-04 05:51] LABS: Blood Urea Nitrogen 9 mg/dL (9-20); Calcium 8.1 mg/dL (8.4-10.2); Chol/HDL Ratio 2.46 %; HDL Cholesterol 32 mg/dL (40-59); Hemolysis Index 1; LDL Cholesterol,Direct 31 mg/dL (50-130)
[2020-08-04 05:52] LABS: BUN/Creatinine Ratio 15
[2020-08-04] MEDS: PANTOPRAZOLE 20 MG TAB PO SCH (09:36)
[2020-08-04] MEDS: amLODIPine 5 MG TAB PO SCH (09:36)
--- NOTE | 2020-08-04 10:27 | Discharge Summary ---
Providers - Providers Date of Admission: 08/03/20 01:52 Attending physician: MELLISSA DAVID MD 08/03/20 03:00 Consult to Physician [CONS] Routine Comment: Consulting Provider: CHAYITO CHIN Physician Instructions: Reason For Exam: Right sided weakness. R/O CVA 08/03/20 03:01 Consult to Dietitian/Nutrition [CONS] Routine Physician Instructions: Reason For Exam: Reason for Consult: Nutrition Recommendations Reason for Consult: Diet education Occupational Therapy Evaluate and Treat [CONS] Routine Comment: Reason For Exam: Neuro deficits Physical Therapy Evaluation and Treat [CONS] Routine Comment: Reason For Exam: Neuro deficits 08/03/20 09:31 Consult to Physician [CONS] Routine Comment: Consulting Provider: KIERA FARMER Physician Instructions: Reason For Exam: s/p TPA for suspected cva Primary care physician: [employer]OR Hospitalization Reason for admission: Right-sided weakness Condition: Stable Hospital course: 50-year-old male with significant past medical history of hypertension and chronic pancreatitis presenting to the emergency room today complaining of right-sided weakness. Weakness is said to have started about 45 to 50 minutes prior to reporting to the emergency room. He has had some facial droop especially on the right side. He denies any chest pain or shortness of breath, no headache or dizziness and denies any blurry vision. Patient denies any nausea vomiting and no abdominal pain. He denies any sick contacts and no recent travel. Denies any contact with anyo ne with COVID-19. Upon arrival in the emergency room patient was found to have a right-sided weakness and initially declined a TPA. Was also found to be intoxicated. Upon further counseling he however agreed to having TPA administered. During the course of his stay in the emergency room he had some improvement in his symptoms. Work-up in the emergency room including CT scan of the head and CTA were unremarkable. He was evaluated by the tele-neurologist who recommended a CVA work-up. Repeat MRI was negative for CVA. On evaluation today patient is moving all extremities. We did have 50 minutes counseling on tobacco use and alcohol use patient verbalized understanding. He plans to quit use. Outpatient follow-up with neurologist recommended he was started on aspirin statin therapy. Co unseling on stroke was provided to the patient. (1) CVA (cerebral vascular accident) Current Visit: Yes Status: Acute Qualifiers: CVA mechanism: unspecified Qualified Code(s): I63.9 - Cerebral infarction, unspecified Plan to address problem: Patient presented with right-sided weakness. He has received TPA. He will be monitored in the intensive care unit. We will withhold aspirin at this time. Consult placed to neurology for evaluation. We will also request physical therapy evaluation. We will schedule patient for MRI of the brain and echocardiogram. (2) Alcohol intoxication Current Visit: Yes Status: Acute Qualifiers: Complication of substance-induced condition: with unspecified complication Qualified Code(s): F10.929 - Alcohol use, unspecified with intoxication, unspecified Plan to address problem: Patient counseled on quitting alcohol abuse. We will place on [facility] protocol. (3) HTN (hypertension) Current Visit: No Status: Chronic Plan to address problem: We will resume routine home medications and monitor vital signs closely. (4) tobacco use disorder Disposition: DC-01 TO HOME OR SELFCARE Final Discharge Diagnosis (Prints w/discharge instructions): CVA status post TPA Time spent for discharge: 35 minutes Core Measure Documentation - Palliative Care Palliative Care/ Comfort Measures: Not Applicable - Core Measures Any of the following diagnoses?: stroke - Stroke Discharge Requirements Statin for LDL = or >70 mg/dl on DC: Yes Anticoag for atrial fib/atrial flutter: Not Applicable Antithrombotic for ischemic stroke: Yes Exam - Physical Exam Narrative exam: VITAL SIGNS: Reviewed. GENERAL: The patient appears normally developed, Vital signs as documented. HEAD: No signs of head trauma. EYES: Pupils are equal. Extraocular motions intact. EARS: Hearing grossly intact. MOUTH: Oropharynx is normal. NECK: No adenopathy, no JVD. CHEST: Chest with clear breath sounds bilaterally. No wheezes, rales, or rhonchi. CARDIAC: Regular rate and rhythm. S1 and S2, without murmurs, gallops, or rubs. VASCULAR: No Edema. Peripheral pulses normal and equal in all extremities. ABDOMEN: Soft, non tender and non distended. No rebound or guarding, and no masses palpated. Bowel Sounds normal. MUSCULOSKELETAL: Good range of motion of all major joints. Extremities without clubbing, cyanosis or edema. NEUROLOGIC EXAM: Alert and oriented x 3 No focal sensory or strength deficits. Speech normal. Follows commands. PSYCHIATRIC: Mood normal. SKIN: detail exam as documented in skin assessment - Constitutional Vitals: Temp Pulse Resp BP Pulse Ox 97.7 F 65 18 106/72 99 08/04/20 08:00 08/04/20 09:36 08/04/20 08:00 08/04/20 09:36 08/04/20 08:00 Plan Activity: advance as tolerated, fall precautions Diet: low fat Special Instructions: record daily weights, record daily BP diary, record blood sugar diary, smoking cessation, other (Must quit alcohol use) Follow up with: PRIMARY MD HANNAH [Primary Care Provider] - 7 Days DYAN HOLMAN MD [Staff Physician] - 7 Days Prescriptions: AtorvaSTATin [Lipitor] 40 mg PO QHS #30 tablet Aspirin 325 mg PO QDAY #30 tablet
[2020-08-04] MEDS ORDERED: ASPIRIN 325 MG TAB PO SCH (11:00)
[2020-08-04 12:17] VITALS: BP 132/81
--- NOTE | 2020-08-05 05:36 | Consultation ---
DATE OF CONSULTATION: 08/03/2020 PULMONARY CRITICAL CARE CONSULTATION CONSULTING PHYSICIAN: Dr. Geo Groves. REASON FOR CONSULTATION: Acute CVA, status post TPA, need for ICU observation. CHIEF COMPLAINT AND HISTORY OF PRESENT ILLNESS: The patient is a 50-year-old male with past medical history significant amongst other things for a diagnosis of hypertension and chronic pancreatitis, presented to the Emergency Room complaining of right-sided weakness that started about an hour prior to his reporting. He also had some facial drooping on the right side. He denied any headache, denied chest pain, denied shortness of breath, denied palpitations, denied nausea or vomiting, denied any sick contacts or anyone with COVID-19 infection. In the Emergency Room, the patient initially had declined TPA, was reportedly found to be intoxicated. On further counseling, he agreed to TPA. He then showed some improvement in his symptoms and sent to the critical care unit. When I stopped by to see him, he was getting ready to go to MRI, feeling much better, responding appropriately. The patient is a daily smoker, but unable to quantify how much for me. This really is as much of the history of presentation as I have. PAST MEDICAL HISTORY: Gastroesophageal reflux disease, hypertension, chronic pancreatitis. PAST SURGICAL HISTORY: Status post surgery for perforated gastric ulcer in 2013. MEDICATIONS: Medications he was on at the time I stopped by to see him, according to the medication administration record included the following: Tylenol 650 mg p.o. q.4 hours p.r.n. mild pain or fevers, amlodipine 5 mg p.o. daily, atorvastatin 40 mg p.o. at bedtime, morphine sulfate 2 mg IV q.4 hours p.r.n. moderate pain, Zofran 4 mg IV q.8 hours p.r.n. nausea and vomiting, Protonix 20 mg p.o. b.i.d. ALLERGIES: PENICILLIN, nature of this allergy is unknown. DIET: Well built gentleman. Denies acute weight loss or gain in the preceding few weeks to months. SOCIAL HISTORY: Daily smoker. Also, history of alcohol abuse. Illicit drug use or abuse history is unknown. FAMILY HISTORY: There is a history of hypertension in his father. REVIEW OF SYSTEMS: Difficult to obtain secondary to patient's medical and mental condition. Since he has been here, no gross hematochezia or melena, no gross hematuria, no hematemesis, no hemoptysis. He denies dysuria. No witnessed seizures. Review of systems otherwise unobtainable or as in body of history above. PHYSICAL EXAMINATION: VITAL SIGNS: At presentation in the emergency room, he was afebrile, temperature 98.7, pulse of 87, respiratory rate of 22, blood pressure 136/91, O2 sats were 96%, inspired oxygen concentration at that time was not recorded. When I stopped by to see him, O2 sats were 98% on room air. GENERAL: He is a well-built male. Normocephalic, atraumatic, talking to me in full sentences without significant respiratory distress. HEENT: Anicteric. No conjunctival erythema. Oropharynx was moist. Mallampati II. NECK: No gross jugular venous distention, no thyromegaly. Grossly, there were no palpable lymph nodes in the supraclavicular or submandibular lymph node chains. LUNGS: Auscultation of both lung valenzuela unremarkable. Good bilateral air movement. HEART: Sounds 1 and 2 are heard at the time of my evaluation, regular in rate and rhythm without overt rubs or murmurs. ABDOMEN: Soft, full, bowel sounds positive, nontender, no palpable hepatosplenomegaly. EXTREMITIES: Without overt digital clubbing or cyanosis, no pedal edema. Pedal pulses are 2+ bilaterally. NEUROLOGIC: Pupils are equal, round, about 4 mm, reactive to light. Extraocular muscle movements were intact. Power was slightly reduced in the right arm, but still 4/5 and then in both lower extremities was 5/5. No really gross focal deficits otherwise. SKIN: Normal turgor in the areas examined without overt cellulitis or rash. PSYCHIATRIC: When I examined him, his mood was normal and his affect was appropriate. He had poor judgment and insight though. LABORATORY DATA: From my review are as follows: Admission white cell count 15,200, hemoglobin 13.6, hematocrit 39.3, platelet count 295. INR 0.99. Serum sodium 137, potassium 3.8, chloride 102, bicarbonate 18, BUN 6, creatinine 0.7, glucose was 80. Liver function test: AST , otherwise, essentially within normal limits. Troponin within normal limits. LDL cholesterol was 31. CPK was 228. Urinalysis was negative for nitrites and leukocyte esterase. Urine drug screen was negative presumptively. Plasma alcohol level was 0.13. No blood cultures. Radiographic studies have been reviewed. Chest x-ray is unremarkable. CT of the head was done, no acute intracranial abnormality. CTA negative for significant stenosis or large vessel occlusion. ASSESSMENT: 1. Acute cerebrovascular accident, status post TPA with good response. 2. Alcohol abuse. 3. Acute encephalopathy. 4. History of gastroesophageal reflux disease. 5. History of hypertension. 6. Chronic pancreatitis. 7. Leukocytosis. 8. Mild metabolic acidosis at presentation. PLAN: He is doing better clinically. He is going to the MRI now. I will defer to the neurologist for further management. He is already on secondary prevention including blood pressure control and hyperlipidemia control. Tobacco abstinence and alcohol abstinence has been strongly counseled at bedside. He will be transferred out of the intensive care unit once his 24 hours of observation is completed. Thank you very much for the consult. We will follow along and make further recommendations as picture progresses/becomes clearer. TID: [id number] RECEIPT: [id number] ROSIE/WESTON/VIANNEY
--- NOTE | 2020-08-09 11:12 | Electrocardiograph Report ---
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
== END 2020-08-04 11:30 | disposition home or self-care (01) | DRG 62 ==
LOC: ED 00:08 → CC1 01:52
PROVIDERS: ADMIT Internal Medicine Geriatric Medicine; ATTEND Internal Medicine
DX: I63.9 Cerebral infarction, unspecified (principal); K86.1 Other chronic pancreatitis; G81.91 Hemiplegia, unspecified affecting right dominant side; R53.1 Weakness; F17.210 Nicotine dependence, cigarettes, uncomplicated; I10 Essential (primary) hypertension; K21.9 Gastro-esophageal reflux disease without esophagitis; F10.929 Alcohol use, unspecified with intoxication, unspecified; Y90.9 Presence of alcohol in blood, level not specified; Z82.49 Family history of ischemic heart disease and other diseases of the circulatory system; Z88.0 Allergy status to penicillin
CPT/HCPCS: 36415; 70450; 70496; 70498; 70551; 71045; 80048; 80053; 80061; 80307; 80320; 81001; 82550; 82553; 84484; 85025; 85610; 85670; 85730; 93005; 93306; 93880; 96374; G0378; A9270-GY; G0480; J2997; Q9967

== ENCOUNTER 2021-05-24 02:25 | Emergency (ER) | payer SELFPAY ==
[2021-05-24 03:22] LABS: Bilirubin,Urine NEG (Negative); Blood,Urine NEG (Negative); Color,Urine Straw (Yellow); Mucus,Urine FEW /HPF; Protein,Urine <15 mg/dL mg/dL (Negative); Urobilinogen,Urine < 2.0 mg/dL (<2.0)
[2021-05-24 03:26] LABS: WBC,Urine < 1.0 /HPF (0.0-6.0)
[2021-05-24 03:30] LABS: Amphetamine Screen,Urine PRESUMPTIVE NEGATIVE; Benzodiazepines Screen,Urine PRESUMPTIVE NEGATIVE; Cannabinoid Screen,Urine PRESUMPTIVE NEGATIVE; Cocaine Screen,Urine PRESUMPTIVE NEGATIVE; Methadone Screen,Urine PRESUMPTIVE NEGATIVE; Opiate Screen,Urine PRESUMPTIVE NEGATIVE
[2021-05-24 03:52] LABS: Basophils # (Auto) 0.1 K/mm3 (0.0-0.1); Eosinophils # (Auto) 0.1 K/mm3 (0.0-0.4); Hematocrit 40.8 % (35.5-45.6); Lymphocytes # (Auto) 3.4 K/mm3 (1.2-5.4); Lymphocytes % (Auto) 24.8 % (13.4-35.0); Mean Corpuscular HGB Conc 32 % (32-34); Mean Corpuscular Volume 100 fl (84-94); Monocytes # (Auto) 0.7 K/mm3 (0.0-0.8); Monocytes % (Auto) 4.8 % (0.0-7.3); Platelet Count 296 K/mm3 (140-440); Red Blood Count 4.06 M/mm3 (3.65-5.03)
[2021-05-24] MEDS ORDERED: MORPHINE 4 MG/1 ML INJ IV ONE (04:08)
--- NOTE | 2021-05-24 04:12 | Emergency Department Report ---
ED General Adult HPI - General Chief complaint: Dyspnea/Respdistress Stated complaint: CHEST PAIN/ABD PAIN Time Seen by Provider: 05/24/21 02:47 Source: EMS Mode of arrival: Stretcher Limitations: No Limitations - History of Present Illness Initial comments: This patient has a history of pancreatitis and has had multiple surgeries as a result. According to the son the patient consumed a large amount of alcohol then developed moderate to severe abdominal pain localized to the left upper quadrant area. There is no nausea or vomiting. He also denies fever or chills. -: Gradual Location: abdomen Severity scale (0 -10): 7 Quality: sharp Improves with: none Worsens with: other (Applying pressure to the area) Associated Symptoms: denies other symptoms. denies: chest pain, fever/chills, headaches Treatments Prior to Arrival: none - Related Data Previous Rx's Medication Instructions Recorded Last Taken Type Omeprazole [PriLOSEC] 20 mg PO BID #60 cap 08/01/14 Unknown Rx amLODIPine 5 mg PO QDAY #30 tablet 08/01/14 Unknown Rx Aspirin 325 mg PO QDAY #30 tablet 08/04/20 Unknown Rx AtorvaSTATin [Lipitor] 40 mg PO QHS #30 tablet 08/04/20 Unknown Rx Docusate Sodium [Colace] 100 mg PO BID PRN #14 capsule 05/24/21 Unknown Rx Lansoprazole [Prevacid 24Hr] 15 mg PO DAILY #10 tab 05/24/21 Unknown Rx traMADoL [Ultram 50 MG tab] 50 mg PO Q6HR PRN #14 tablet 05/24/21 Unknown Rx Allergies Allergy/AdvReac Type Severity Reaction Status Date / Time Penicillins Allergy Anaphylaxis Verified 08/03/20 02:48 ED Review of Systems ROS: Stated complaint: CHEST PAIN/ABD PAIN Other details as noted in HPI Comment: All other systems reviewed and negative Constitutional: denies: chills, fever ENT: denies: ear pain, throat pain Respiratory: denies: cough, shortness of breath, wheezing Cardiovascular: denies: chest pain, palpitations Endocrine: no symptoms reported Gastrointestinal: abdominal pain. denies: nausea, vomiting, diarrhea, constipation Neurological: denies: headache, weakness, paresthesias ED Past Medical Hx - Past Medical History Hx Hypertension: Yes Hx Heart Attack/AMI: No Hx Congestive Heart Failure: No Hx Diabetes: No Hx GERD: Yes Hx Liver Disease: No Hx Renal Disease: No Hx Sickle Cell Disease: No Hx Seizures: No Hx Asthma: No Hx COPD: No Hx HIV: No Additional medical history: pancreatitis - Surgical History Hx Pacemaker: No Hx Internal Defibrillator: No Additional Surgical History: perf gastric ulcer april 2013 - Social History Smoking Status: Current Every Day Smoker Substance Use Type: Alcohol - Medications Home Medications: Home Medications Medication Instructions Recorded Confirmed Last Taken Type Omeprazole [PriLOSEC] 20 mg PO BID #60 cap 08/01/14 08/03/20 Unknown Rx amLODIPine 5 mg PO QDAY #30 tablet 08/01/14 08/03/20 Unknown Rx Aspirin 325 mg PO QDAY #30 tablet 08/04/20 Unknown Rx AtorvaSTATin [Lipitor] 40 mg PO QHS #30 tablet 08/04/20 Unknown Rx Docusate Sodium [Colace] 100 mg PO BID PRN #14 capsule 05/24/21 Unknown Rx Lansoprazole [Prevacid 24Hr] 15 mg PO DAILY #10 tab 05/24/21 Unknown Rx traMADoL [Ultram 50 MG tab] 50 mg PO Q6HR PRN #14 tablet 05/24/21 Unknown Rx ED Physical Exam - General Limitations: No Limitations, Language Barrier General appearance: alert, appears intoxicated, in distress (Secondary to pain) - Eye Eye exam: Present: normal appearance, PERRL, EOMI Pupils: Present: normal accommodation - ENT ENT exam: Present: mucous membranes moist - Neck Neck exam: Present: normal inspection, full ROM. Absent: tenderness - Respiratory Respiratory exam: Present: normal lung sounds bilaterally. Absent: respiratory distress - Cardiovascular Cardiovascular Exam: Present: regular rate, normal rhythm. Absent: tachycardia - GI/Abdominal GI/Abdominal exam: Present: soft, tenderness (Left upper quadrant), guarding. A bsent: rebound, rigid - Rectal Rectal exam: Present: deferred - Extremities Exam Extremities exam: Present: normal inspection, full ROM - Back Exam Back exam: Present: normal inspection, full ROM. Absent: tenderness - Neurological Exam Neurological exam: Present: alert, oriented X3 - Psychiatric Psychiatric exam: Present: normal affect, normal mood - Skin Skin exam: Present: warm, dry, intact, normal color. Absent: rash ED Course Vital Signs 05/24/21 05/24/21 05/24/21 02:44 04:50 04:51 Temperature 98.1 F 98.9 F Pulse Rate 94 H 82 Respiratory 12 15 Rate Blood Pressure Blood Pressure 112/68 90/57 [Left] O2 Sat by Pulse 98 95 99 Oximetry 05/24/21 05/24/21 05/24/21 05:01 05:15 05:39 Temperature Pulse Rate Respiratory Rate Blood Pressure 95/55 90/54 94/58 Blood Pressure [Left] O2 Sat by Pulse 94 94 97 Oximetry 05/24/21 05/24/21 05/24/21 05:45 06:01 06:15 Temperature Pulse Rate Respiratory Rate Blood Pressure 94/58 88/51 83/47 Blood Pressure [Left] O2 Sat by Pulse 96 94 95 Oximetry 05/24/21 05/24/21 05/24/21 06:31 06:42 06:43 Temperature 98.0 F Pulse Rate 79 Respiratory 16 15 Rate Blood Pressure 85/49 139/77 Blood Pressure [Left] O2 Sat by Pulse 95 100 100 Oximetry 05/24/21 06:45 Temperature 98.8 F Pulse Rate Respiratory Rate Blood Pressure Blood Pressure [Left] O2 Sat by Pulse Oximetry ED Medical Decision Making - Lab Data Result diagrams: 05/24/21 03:31 05/24/21 03:31 - Radiology Data Radiology results: report reviewed, image reviewed A CT scan was performed and this shows evidence of chronic pancreatitis. There is also notable moderate amount of stool throughout the colon. - Medical Decision Making The patient states that he is still having some slight pain. Palpation of the abdomen does not reveal any evidence of guarding rigidity or rebound. The matias valle's problems will be as follows 1 chronic pancreatitis 2 constipation 3 alcoholic gastritis. He will be discharged with pain medications medications for his gastritis and constipation. The patient was asked to avoid further alcohol usage. He was also has a follow-up with his primary care physician and return to the emergency department if his symptoms worsen despite this treatment plan. Critical care attestation.: If time is entered above; I have spent that time in minutes in the direct care of this critically ill patient, excluding procedure time. ED Disposition Clinical Impression: Pancreatitis, chronic, Constipation, Alcoholic gastritis Disposition: 01 HOME / SELF CARE / HOMELESS Is pt being admited?: No Does the pt Need Aspirin: No Condition: Stable Instructions: Chronic Pancreatitis, Gastritis, Adult, Constipation, Adult Additional Instructions: Take the medications as prescribed. Avoid alcohol usage. Follow-up with your primary care physician next available appointment. Return to the emergency department if any problems. Prescriptions: Docusate Sodium [Colace] 100 mg PO BID PRN #14 capsule PRN Reason: Constipation Lansoprazole [Prevacid 24Hr] 15 mg PO DAILY #10 tab traMADoL [Ultram 50 MG tab] 50 mg PO Q6HR PRN #14 tablet PRN Reason: Pain Referrals: ERIC MONROY MD [Primary Care Provider] - 3-5 Days
[2021-05-24 04:15] LABS: Alanine Aminotransferase 41 units/L (7-56); Albumin 3.3 g/dL (3.9-5); Blood Urea Nitrogen 5 mg/dL (9-20); Calcium 8.2 mg/dL (8.4-10.2); Hemolysis Index 11
[2021-05-24 04:20] LABS: BUN/Creatinine Ratio 8
--- NOTE | 2021-05-24 05:51 | Cat Scan Report ---
CT ABDOMEN AND PELVIS WITHOUT CONTRAST INDICATION / CLINICAL INFORMATION: Abdominal pain with a history of Pancreatitis. TECHNIQUE: Axial CT images were obtained through the abdomen and pelvis without IV contrast. All CT scans at this location are performed using CT dose reduction for ALARA by means of automated exposure control. COMPARISON: CT of the abdomen and pelvis 07/31/2014 FINDINGS: LOWER CHEST: Dependent atelectatic changes within the lower lobes. LIVER: Moderate hepatic steatosis. Minimal pneumobilia. GALLBLADDER: Cholecystectomy. BILE DUCTS: Possibly enlarged. Not well visualized secondary to lack of intravenous contrast. SPLEEN: No significant abnormality. PANCREAS: Diffuse punctate calcifications compatible with prior pancreatitis. No inflammatory strandi ng. ADRENALS: No significant abnormality. RIGHT KIDNEY / URETER: Small 1 to 2 mm nonobstructing nephroliths. No additional right-sided urolithi asis LEFT KIDNEY / URETER: No significant abnormality. STOMACH / DUODENUM / SMALL BOWEL: Postoperative changes suggesting previous bariatric surgery and/or Jeronimo-en-Y procedure. COLON: Moderate stool throughout the large bowel and distal ileum. No obstruction. APPENDIX: Not identified PERITONEUM: No free air or free fluid are present within the abdomen or pelvis. LYMPH NODES: No significant adenopathy. AORTA / ARTERIES: Mild atherosclerotic calcification without acute abnormality. IVC / VEINS: No significant abnormality. URINARY BLADDER: No significant abnormality. REPRODUCTIVE ORGANS: No significant abnormality. ADDITIONAL ABDOMINAL/PELVIC FINDINGS: None. SKELETAL SYSTEM: No significant abnormality. IMPRESSION: 1. Moderate stool within the large bowel and distal small bowel no obstruction. 2. Findings compatible with chronic pancreatitis. No specific findings to suggest acute superimposed pancreatitis. Correlation with serum lipase may be useful. 3. Small volume pneumobilia. 4. Hepatic steatosis. Signer Name: Cesario Bustillos II, MD Signed: 05/24/2021 5:47 AM Workstation Name: [id number]
[2021-05-24 08:53] VITALS: BP 166/76
== END 2021-05-24 08:45 | disposition home or self-care (01) ==
LOC: ED 02:25
DX: K86.1 Other chronic pancreatitis (principal); K59.00 Constipation, unspecified; K29.20 Alcoholic gastritis without bleeding; I10 Essential (primary) hypertension; F17.200 Nicotine dependence, unspecified, uncomplicated; K21.9 Gastro-esophageal reflux disease without esophagitis; Z88.0 Allergy status to penicillin; Z79.899 Other long term (current) drug therapy
CPT/HCPCS: 36415; 74176; 80053; 80307; 81001; 83690; 85025; 96374; 99284; J2270